=== PATIENT | male | born 1965 | race Caucasian/White ===

== ENCOUNTER → 2018-03-16 | Outpatient (CLI) | payer OTHER | END | disposition home or self-care (01) | LOC: CDC 11:00 | DX: Z01.810 Encounter for preprocedural cardiovascular examination (principal); S53.432 Radial collateral ligament sprain of left elbow; M77.12 Lateral epicondylitis, left elbow; M25.522 Pain in left elbow | CPT/HCPCS: 93000 ==